=== PATIENT | female | born 1945 | race Caucasian/White ===

== ENCOUNTER → 2018-11-03 | Outpatient (CLI) | payer OTHER | END | disposition home or self-care (01) | LOC: ROC 07:15 | PROVIDERS: ATTEND Radiology Radiation Oncology | DX: C21.0 Malignant neoplasm of anus, unspecified (principal); J43.9 Emphysema, unspecified | CPT/HCPCS: 99214; G0463 ==

== ENCOUNTER 2018-12-02 11:19 | Day surgery (SDC) | payer MEDICARE ==
[~2018-12-02] VITALS: Ht 165.1 cm; Wt 45.7 kg
[2018-12-02] MEDS ORDERED: CEFAZOLIN PMX 1GM/50ML 50 ML ONE (11:57)
[2018-12-02] MEDS ORDERED: LIDOCAINE 1%, 20ML ONE (12:11)
[2018-12-02 12:25] VITALS: BP 151/88
[2018-12-02] MEDS ORDERED: CEFAZOLIN 1,000 MG IM ONE (12:30)
[2018-12-02] MEDS ORDERED: FENTANYL PF 100 MCG/2ML ONE (12:47)
[2018-12-02] MEDS ORDERED: NALOXONE 1 MG/ML, 2ML ONE (12:48)
[2018-12-02] MEDS ORDERED: MIDAZOLAM 1 MG/ML, 5ML ONE (12:48)
[2018-12-02] MEDS ORDERED: FLUMAZENIL 0.1 MG/1 ML, 5ML ONE (12:48)
[2018-12-02] MEDS ORDERED: OXYcodone/APAP 10/325MG TABLET ONE (14:45)
== END 2018-12-02 16:25 | disposition home or self-care (01) ==
LOC: OUT 11:19
PROVIDERS: ATTEND Internal Medicine Hematology & Oncology
DX: Z45.2 Encounter for adjustment and management of vascular access device (principal); C21.1 Malignant neoplasm of anal canal; I10 Essential (primary) hypertension; J44.9 Chronic obstructive pulmonary disease, unspecified; F32.9 Major depressive disorder, single episode, unspecified; F41.9 Anxiety disorder, unspecified; Z87.891 Personal history of nicotine dependence; Z88.1 Allergy status to other antibiotic agents; Z98.51 Tubal ligation status; Z98.890 Other specified postprocedural states
CPT/HCPCS: 36561; 77001; 99156; 99157; C1788; J1642; J2250; J3010; J3490; J2310

== ENCOUNTER → 2018-12-09 | Outpatient (CLI) | payer MEDICARE ==
[~2018-12-09] MED LIST: GADOBUTROL 7.5 MMOL/7.5 ML VIAL ONE
[2018-12-09 11:30] LABS: CREATININE 0.61 mg/dL (0.55-1.02)
== END | disposition home or self-care (01) ==
LOC: RAD 10:16
PROVIDERS: ATTEND Internal Medicine Hematology & Oncology
DX: C21.1 Malignant neoplasm of anal canal (principal)
CPT/HCPCS: 36415; 72197; 82565; A9585

== ENCOUNTER 2019-02-18 07:34 | Outpatient (CLI) | payer MEDICARE | END 2019-02-18 23:59 | disposition home or self-care (01) | LOC: ROC 07:34 | PROVIDERS: ATTEND Radiology Radiation Oncology | DX: Z02.9 Encounter for administrative examinations, unspecified (principal) ==

== ENCOUNTER 2019-02-28 09:00 | Outpatient (CLI) | payer MEDICARE | END 2019-02-28 23:59 | disposition home or self-care (01) | LOC: ROC 09:00 | PROVIDERS: ATTEND Radiology Radiation Oncology | DX: Z02.9 Encounter for administrative examinations, unspecified (principal) ==

== ENCOUNTER 2019-04-11 09:51 | Outpatient (CLI) | payer MEDICARE | END 2019-04-11 23:59 | disposition home or self-care (01) | LOC: ROC 09:51 | PROVIDERS: ATTEND Radiology Radiation Oncology | DX: Z02.9 Encounter for administrative examinations, unspecified (principal) ==

== ENCOUNTER 2019-09-16 08:36 | Outpatient (CLI) | payer MEDICARE | END 2019-09-16 23:59 | disposition home or self-care (01) | LOC: ROC 08:36 | PROVIDERS: ATTEND Radiology Radiation Oncology | DX: Z02.9 Encounter for administrative examinations, unspecified (principal) ==